=== PATIENT | male | born 1995 | race Caucasian/White ===

== ENCOUNTER 2017-06-05 08:37 | Emergency (ER) | payer SELFPAY ==
[~2017-06-05] VITALS: Ht 170.2 cm; Wt 88.0 kg
[2017-06-05 08:45] VITALS: BP 103/73
== END 2017-06-05 10:50 | disposition home or self-care (01) ==
LOC: ER 09:28
DX: T78.40XA Allergy, unspecified, initial encounter (principal); X58.XXXA Exposure to other specified factors, initial encounter
CPT/HCPCS: 99283

== ENCOUNTER 2019-08-03 02:54 | Emergency (ER) | payer SELFPAY ==
[~2019-08-03] VITALS: Ht 170.2 cm; Wt 107.3 kg
[2019-08-03 03:18] VITALS: BP 142/82
== END 2019-08-03 06:13 | disposition home or self-care (01) ==
LOC: ER 02:54
DX: R07.89 Other chest pain (principal)
CPT/HCPCS: 71045; 93005; 99283

== ENCOUNTER 2020-09-20 19:58 | Emergency (ER) | payer MEDICAID ==
[~2020-09-20] VITALS: Ht 170.2 cm; Wt 113.9 kg
[2020-09-20 20:54] VITALS: BP 119/84
== END 2020-09-20 21:53 | disposition left against medical advice (07) ==
LOC: ER 19:58
DX: M54.5 Low back pain (principal); I10 Essential (primary) hypertension
CPT/HCPCS: 99281

== ENCOUNTER 2023-09-15 15:26 | Emergency (ER) | payer SELFPAY ==
[~2023-09-15] VITALS: Ht 170.2 cm; Wt 127.0 kg
[2023-09-15 15:44] VITALS: O2SAT 98
[2023-09-15 17:53] VITALS: BP 125/81; PULSE 90; RESP 15; TEMP 98.5
== END 2023-09-15 17:56 | disposition home or self-care (01) ==
LOC: ER 15:26
DX: R05.9 Cough, unspecified (principal)
CPT/HCPCS: 71045; 99283